=== PATIENT | male | born 1940 | race Caucasian/White ===

== ENCOUNTER → 2017-09-21 | Outpatient (CLI) | payer MEDICARE ==
[2014-11-24 16:30] VITALS: BMI 30.4
[~2017-09-21] MED LIST: ARFO15VI IH; ASPI-1471 PO; ASPI-757 PO; ASPI-816; ATOR20TA65 PO; ATR10 PO; BENA40TA51 PO; BIS10S PR; BUDE0.256 IH; CARV12.578 PO; CET10 PO; CETI-169 PO; CHOL10005 PO; CYAN100088 PO; ENO40I SQ; FLU45SYR17 IM; FLU45SYR25 IM ONLY; FLUT10SP; FLUT16SP19 NS; FLUT1DIS27 IH; GABA-547 PO; GLIM1TAB25 PO; HCTZ25 PO; LANS30CA70 PO; LEVO50TA86 PO; LISI-353 PO; LISI20TA29 PO; LOR7.5/325 PO; MELO-150 PO; METF-410 PO; METF500T4 PO; METH4TAB66 PO; MOM PO; MON10 PO; MONT10TA4 PO; NAPR220C12 PO; NOR10 PO; OLO2ODPT OD; OLO2ODPT OU; OMEP-125 PO; OXYC20TA86 PO; OXYGEN INH; PNEU0.5D3 IM; SIMV-54 PO; SULF-198 PO; TADA2.5T3 PO; TADA20TA33 PO; TAM4 PO; TAMS0.4C70 PO; TRAM-420 PO; TRI40I IART; TRI40I IM
[2017-09-21 10:25] LABS: PLATELET COUNT, AUTOMATED 141 K/uL (150-450)
--- NOTE | 2017-09-21 12:50 | RADIOLOGY IMAGING REPORT ---
FACILITY: [facility] - [place] PATIENT NAME: Flavio Cast : 1940 MR: [id number] V: [id number] EXAM DATE: ORDERING PHYSICIAN: AVE DYER TECHNOLOGIST: Location: [facility] - [place] Patient: Flavio Cast : 1940 Visit/Account:[id number] Date of Sevice: 09/21/2017 Exam type: CHEST PA AND LAT History: May 20 month, no chest pain Comparison: February 11, 2013. Findings: There is hyperinflation lung powers with flattening the hemidiaphragms. Pleural thickening is again seen along the lateral aspect of both hemithoraces similar to the prior study. Coarse linear strandi ng in the lung bases appears unchanged consistent with scarring. No acute appearing infiltrates are seen. The cardiac silhouette is borderline enlarged but unchanged. There are extensive spondylotic changes of the thoracic spine with mild compression fractures also appear similar. Incompletely imag ed is a right shoulder arthroplasty IMPRESSION: 1. Hyperinflation lung powers and chronic pleural thickening along the lateral aspect of both hemith oraces and coarse linear stranding lung bases all appear unchanged when compared to the prior study. Report Dictated By: Susanne Nguyen MD at 09/21/2017 12:44 PM Report E-Signed By: Susanne Nguyen MD at 09/21/2017 12:46 PM WSN:[email or web address]
== END ==
LOC: LAB 09:44
PROVIDERS: ATTEND Internal Medicine
DX: Z12.5 Encounter for screening for malignant neoplasm of prostate (principal); E78.00 Pure hypercholesterolemia, unspecified; I10 Essential (primary) hypertension; E03.9 Hypothyroidism, unspecified; D75.1 Secondary polycythemia; N40.0 Benign prostatic hyperplasia without lower urinary tract symptoms; J44.9 Chronic obstructive pulmonary disease, unspecified; R91.8 Other nonspecific abnormal finding of lung field
CPT/HCPCS: 71046; 82746; 83036; 84443; 85025; G0103; 82040; 82247; 82310; 82374; 82435; 82465; 82565; 82947; 83718; 84075; 84132; 84153; 84155; 84295; 84450; 84460; 84478; 84520

== ENCOUNTER 2018-02-04 15:15 | Inpatient (IN) | payer MEDICARE ==
[2014-11-24 16:30] VITALS: Ht 193 cm; Wt 108.9 kg
[~2018-02-04] VITALS: Ht 193 cm; Wt 108.9 kg
[~2018-02-04 15:15] MED LIST changes: -ASPI-816; +ASPI-870; -METF-410 PO; +METF-411 PO
--- NOTE | 2018-02-04 15:26 | ER Report ---
History and Physical Time Seen By MD: 15:21 HPI/ROS CHIEF COMPLAINT: Weakness, hypotension, right lower extremity swelling and erythema HISTORY OF PRESENT ILLNESS: Patient is a 77-year-old male here with complaints of right lower extremity redness, erythema, swelling and pain. Patient is diabetic and has a right lower extremity concerning for cellulitis versus clot. Patient reportedly fell 2 weeks ago and treated small wound in the leg just likely the entry point for bacterial infection. She also reports generalized weakness and was noted to be hypotensive with systolic in the 80s patient's family doctor today. Patient is afebrile at time of evaluation, hypotensive complaining of edema and pain of the right lower extremity. He is afebrile and denies fevers or chills at home, headache, blurred vision, chest pain, shortness breath. REVIEW OF SYSTEMS: Constitutional: No fever, no chills. Eyes: No discharge. ENT: No sore throat. Cardiovascular: No chest pain, no palpitations. Respiratory: No cough, no shortness of breath. Gastrointestinal: No abdominal pain, no vomiting. Genitourinary: No hematuria. Musculoskeletal: No back pain. Skin: + 2 + pitting edema of RLE and cellulitis Neurological: No headache. Allergies: Uncoded Allergies: HAYFEVER (Allergy, Intermediate, UNKNOWN, 01/24/12) Home Meds Active Scripts Gabapentin (GABAPENTIN) 100 Mg Capsule, 1-2 TAB PO BID Y for pain, #360 CAPSULE 3 Refills Prov:AVE DYER MD 12/10/17 Lisinopril (LISINOPRIL) 20 Mg Tablet, 1 TAB PO QDAY, #90 TAB 3 Refills Prov:AVE DYER MD 10/23/17 Omeprazole (OMEPRAZOLE) 20 Mg Capsule.dr, 1 CAP PO QDAY, #90 TAB 3 Refills TAKE ONE CAPSULE BY MOUTH ONCE A DAY Prov:AVE DYER MD 09/21/17 Atorvastatin Calcium (ATORVASTATIN CALCIUM) 20 Mg Tablet, 1 TAB PO QDAY, #90 TAB 4 Refills Prov:AVE DYER MD 03/01/17 Tamsulosin Hcl (TAMSULOSIN HCL) 0.4 Mg Cap.er.24h, 1 CAP PO QHS, #90 CAP 4 Refills Prov:AVE DYER MD 03/01/17 Montelukast Sodium (MONTELUKAST SODIUM) 10 Mg Tablet, 1 TAB PO QDAY, #90 TAB 4 Refills TAKE ONE TABLET BY MOUTH AT LEAST TWO HOURS PIOR TO EXERCISE Prov:AVE DYER MD 03/01/17 Levothyroxine Sodium (LEVOTHYROXINE SODIUM) 50 Mcg Tablet, 1 TAB PO QDAY, #90 TAB 4 Refills Prov:AVE DYER MD 03/01/17 Glimepiride (GLIMEPIRIDE) 1 Mg Tablet, 1 TAB PO QDAY, #90 TAB 4 Refills Prov:AVE DYER MD 03/01/17 Carvedilol (CARVEDILOL) 12.5 Mg Tablet, 1 TAB PO BID, #180 TAB 4 Refills TAKE ONE TABLET BY MOUTH TWICE A DAY Prov:AVE DYER MD 03/01/17 Metformin Hcl (METFORMIN HCL) 500 Mg Tablet, 2 TAB PO BID, #360 TAB 4 Refills TAKE TWO TABLETS BY MOUTH TWO TIMES A DAY WITH FOOD Prov:AVE DYER MD 03/01/17 Fluticasone Prop 50 Mcg Ns (FLONASE 50 MCG NS) 16 Gm [place].susp, 2 SPRAYS NS QDAY, #3 CON 4 Refills Prov:AVE DYER MD 03/01/17 Cyanocobalamin (Vitamin B-12) (B-12) 1,000 Mcg Tablet.er, 1000 MCG PO QDAY, #30 TAB 5 Refills Prov:AVE DYER MD 06/20/16 Reported Medications Aspirin (Children's Aspirin) 81 Mg Tab.chew, 1 TAB 3XW, #100 TAB 4 Refills 11/19/14 Discontinued Reported Medications Tamsulosin Hcl (FLOMAX) 0.4 Mg Cap.er.24h, MG PO, CAP 02/04/18 Cholecalciferol (Vitamin D3) (VITAMIN D3) 1,000 Unit Tablet, 1000 TAB PO DAILY, #100 TAB 4 Refills 11/19/14 Discontinued Scripts Cetirizine Hcl (CETIRIZINE HCL) 10 Mg Tablet, 1 TAB PO QDAY, #90 TAB 3 Refills TAKE 1 TABLET DAILY. Prov:AVE DYER MD 05/10/16 Budesonide (BUDESONIDE) 0.25 Mg/2 Ml Ampul.neb, 0.25 MG IH BID, #60 ML 6 Refills Prov:AVE DYER MD 09/21/17 Arformoterol Tartrate (BROVANA) 15 Mcg/2 Ml Vial.neb, 15 MCG IH BID, #60 VIAL 6 Refills Prov:AVE DYER MD 09/21/17 Past Medical/Surgical History Head trauma, hypertension, COPD, oxygen dependent, gastric reflux, hiatal hernia , arthritis, diabetes Hx Smoking: No Smoking Status: Former Smoker Constitutional Vital Sign - Last 24 Hours 02/04/18 02/04/18 02/04/18 02/04/18 15:15 15:22 15:23 15:23 Temp 98.5 Pulse ??? 71 Resp 18 B/P (MAP) 99/53 (68) 99/53 Pulse Ox 94 O2 Delivery Room Air O2 Flow Rate 2.0 02/04/18 02/04/18 02/04/18 02/04/18 15:30 15:45 16:15 16:45 Pulse 75 77 Resp 13 13 21 B/P (MAP) 84/55 (65) 81/56 (64) Pulse Ox 93 94 92 02/04/18 02/04/18 02/04/18 16:54 17:00 17:05 Pulse 72 Resp 17 B/P (MAP) 91/50 (64) 91/56 (68) Pulse Ox 92 Physical Exam General Appearance: The patient is alert, has no immediate need for airway protection and no signs of toxicity. No acute distress Eyes: Pupils equal and round no pallor or injection. ENT, Mouth: Mucous membranes are moist. Respiratory: There are no retractions, lungs are clear to auscultation. Cardiovascular: Regular rate and rhythm. Gastrointestinal: Abdomen is soft and non tender, no masses, bowel sounds normal. Neurological: No focal neurological deficit Skin: + Right lower extremity erythema and edema Musculoskeletal: Neck is supple non tender. Right lower extremity is tender and erythematous DIFFERENTIAL DIAGNOSIS: After history and physical exam differential diagnosis was considered for cellulitis in the setting of diabetes, DVT, heart failure, dehydration, hypovolemia, sepsis. Medical Decision Making Data Points Result Diagram: 02/05/18 0525 02/05/18 0525 Laboratory Hematology Test 02/04/18 15:25 Prothrombin Time 14.1 seconds (12.0-14.4) Prothromb Time International Ratio 1.09 Activated Partial Thromboplast Time 31 seconds (23-35) Chemistry Test 02/04/18 15:25 Prothrombin Time 14.1 seconds (12.0-14.4) Prothromb Time International Ratio 1.09 Activated Partial Thromboplast Time 31 seconds (23-35) Coagulation Test 02/04/18 15:25 Prothrombin Time 14.1 seconds Prothromb Time International Ratio 1.09 Activated Partial Thromboplast Time 31 seconds Microbiology Microbiology Date/Time Source Procedure Growth Status 02/04/18 16:13 Blood Blood Culture - Preliminary NO GROWTH AFTER 1 DAY, REINCUBATED Resulted 02/04/18 16:08 Blood Blood Culture - Preliminary NO GROWTH AFTER 1 DAY, REINCUBATED Resulted ED Course/Re-evaluation ED Course Patient is a 77-year-old male here with complaints of right lower extremity swelling and surrounding erythema concerning for cellulitis in the setting of diabetes. Patient reports striking the leg approximately 2 weeks ago creating a small wound which may be the nidus for infection. Patient is afebrile at time of evaluation however it is noted to have a lactate 2.5, white blood cell count was 12. Blood Cultures are collected. Patient received fluids and cefepime for antimicrobial coverage as well as Solu-Cortef. X-ray of the chest, ultrasound Doppler of the right lower extremity as well as x-ray of the tib-fib of the right lower extremity were completed. I discussed the patient with Dr. Porter who accepted the patient to the hospitalist service. Patient remained stable throughout course and treatment. Decision to Disposition Date: Feb 04, 2018 Decision to Disposition Time: 17:52 Depart Departure Latest Vital Signs Vital Signs Date Time Temp Pulse Resp B/P (MAP) Pulse Ox O2 Delivery O2 Flow Rate FiO2 02/04/18 17:05 72 17 92 02/04/18 17:00 91/56 (68) 02/04/18 15:23 2.0 02/04/18 15:23 98.5 Room Air Impression: Primary Impression: Cellulitis Additional Impressions: Diabetes Peripheral edema Condition: Improved Disposition: Admitted from ER Referrals: AVE DYER MD (PCP) Problem Qualifiers ISRAEL PITTS DO Feb 04, 2018 15:26
[2018-02-04] MEDS ORDERED: CEFEPIME HCL 1 GM VIAL IVP ONE (15:40)
[2018-02-04] MEDS ORDERED: NS 0.9% IV ONE (15:40)
[2018-02-04] MEDS ORDERED: TAMS0.4C25 PO (15:46)
[2018-02-04 15:52] LABS: PLATELET COUNT, AUTOMATED 141 K/uL (150-450)
[2018-02-04 16:01] LABS: INR 1.09
[2018-02-04] MEDS ORDERED: HYDROCORTISONE 100 MG/2 ML IVP ONE (16:50)
--- NOTE | 2018-02-04 17:07 | RADIOLOGY IMAGING REPORT ---
FACILITY: [facility] PATIENT NAME: Flavio Cast : 1940 MR: [id number] V: [id number] EXAM DATE: ORDERING PHYSICIAN: ISRAEL PITTS TECHNOLOGIST: Location: [facility] - [place] Patient: Flavio Cast : 1940 Visit/Account:[id number] Date of Sevice: 02/04/2018 CHEST PA AND LAT Indication: Comparison: Chest x-ray 09/21/2017 Findings: Lungs: Linear scarring left lung base is unchanged. The lungs are otherwise clear. There is hyperinfl ation and flattening the diaphragms. Mediastinum/pulmonary vasculature: Cardiomegaly is unchanged. The pulmonary vasculature is distinct. Bones/soft tissues: There are postoperative changes from a right shoulder arthroplasty. Multilevel th oracic spondylosis is seen. IMPRESSION: 1. No evidence of acute airspace opacity or pneumonia. 2. Chronic linear scarring left lung base. 3. COPD, stable. 4. Cardiomegaly without evidence of CHF. Report Dictated By: Andrew Rubalcava at 02/04/2018 5:00 PM Report E-Signed By: Andrew Rubalcava at 02/04/2018 5:01 PM [email or web address]
--- NOTE | 2018-02-04 17:14 | RADIOLOGY IMAGING REPORT ---
FACILITY: [facility] - [place] PATIENT NAME: Flavio Cast : 1940 MR: [id number] V: [id number] EXAM DATE: ORDERING PHYSICIAN: ISRAEL PITTS TECHNOLOGIST: Location: [facility] Patient: Flavio Cast : 1940 Visit/Account:[id number] Date of Sevice: 02/04/2018 TIBIA FIBULA RIGHT Indication: infection Comparison: None. Findings: There are postoperative changes from a right total knee arthroplasty. There are also postop erative changes with fusion hardware in the distal tibia, as well as resection of the distal fibula. There is no evidence of acute fracture. There is fusion hardware of the mortise. Atherosclerotic patel ges are seen in the calf. IMPRESSION: 1. Hardware with fusion of the mortise, and resection of the distal fibula. No evidence of acute frac ture. 2. Postoperative changes from a right total knee arthroplasty. Report Dictated By: Andrew Rubalcava at 02/04/2018 5:01 PM Report E-Signed By: Andrew Rubalcava at 02/04/2018 5:10 PM WSN:[id number]
--- NOTE | 2018-02-04 18:04 | RADIOLOGY IMAGING REPORT ---
FACILITY: [facility] - [place] PATIENT NAME: Flavio Cast : 1940 MR: [id number] V: [id number] EXAM DATE: ORDERING PHYSICIAN: ISRAEL PITTS TECHNOLOGIST: Location: [facility] Patient: Flavio Cast : 1940 Visit/Account:[id number] Date of Sevice: 02/04/2018 Right lower extremity venous Doppler duplex ultrasound scan. HISTORY: Edema, pain, injury. COMPARISON: 02/09/2014. A color flow Doppler duplex ultrasound examination with spectral analysis was performed on the lower extremity. The common femoral vein, superficial femoral vein, and popliteal vein are normal. These ve ssels compress and augment normally. The upper portions of the trifurcation veins are unremarkable. P ortions of the deep veins of the calf are obscured. No intraluminal filling defects are identified to suggest acute thrombus in the deep venous system. Note that Doppler ultrasound is somewhat insensiti ve below the knee. A venous reflux study was not performed at this time. A 12 x 4 x 1 cm fluid colle ction is present in the soft tissues of the right calf. A 3 cm oval-shaped fat containing lymph node is present in the right groin. IMPRESSION: Negative for acute deep vein thrombosis. Calf soft tissue fluid collection. Possible etiologies include hematoma, infected fluid, or less like ly Andres's cyst. Mild right groin adenopathy, probably reactive. Report Dictated By: Hermann Abebe MD at 02/04/2018 5:55 PM Report E-Signed By: Hermann Abebe MD at 02/04/2018 6:00 PM [id number]:[id number]
[2018-02-04 18:29] VITALS: BP 117/73
[2018-02-04] MEDS ORDERED: NS(*) 0.9% 1000 ML BAG 1,000 ML IV PRN (19:27)
[2018-02-04] MEDS ORDERED: ACETAMINOPHEN 325 MG TAB PO PRN (19:30)
[2018-02-04] MEDS ORDERED: GABAPENTIN 100 MG CAP PO PRN (19:30)
[2018-02-04] MEDS ORDERED: ACETAMINOPHEN 500 MG TAB PO PRN (20:00)
--- NOTE | 2018-02-04 20:09 | History & Physical ---
History of Present Illness History of Present Illness 77yo male with T2DM who was sent to the ER for concern of a cellulitis of the right leg. 3 days ago, he fell and scraped his right knee. For the last 2 days , he has noticed erythema and pain in the RLE. He went to his PCP and they sent him to the ER because of the extent of the erythema and he a lowish BP. The patient denies f/c/sob/cp. He doesn't report any weakness. In the ER, he was bolused with IVF per the sepsis protocol, given hydrocortisone and a dose of Cefepime. The BP responded to the fluid bolus. History Problems: (1) BPH (benign prostatic hyperplasia) Status: Chronic (2) Hypertension, benign Status: Chronic (3) Type II diabetes mellitus Status: Chronic (4) Hypothyroidism Status: Chronic (5) Hypercholesterolemia Status: Chronic (6) COPD (chronic obstructive pulmonary disease) Status: Chronic (7) Sleep apnea Status: Chronic (8) Status post knee replacement Home Meds Active Scripts Gabapentin (GABAPENTIN) 100 Mg Capsule, 1-2 TAB PO BID Y for pain, #360 CAPSULE 3 Refills Prov:AVE DYER MD 12/10/17 Lisinopril (LISINOPRIL) 20 Mg Tablet, 1 TAB PO QDAY, #90 TAB 3 Refills Prov:AVE DYER MD 10/23/17 Omeprazole (OMEPRAZOLE) 20 Mg Capsule.dr, 1 CAP PO QDAY, #90 TAB 3 Refills TAKE ONE CAPSULE BY MOUTH ONCE A DAY Prov:AVE DYER MD 09/21/17 Atorvastatin Calcium (ATORVASTATIN CALCIUM) 20 Mg Tablet, 1 TAB PO QDAY, #90 TAB 4 Refills Prov:AVE DYER MD 03/01/17 Tamsulosin Hcl (TAMSULOSIN HCL) 0.4 Mg Cap.er.24h, 1 CAP PO QHS, #90 CAP 4 Refills Prov:AVE DYER MD 03/01/17 Montelukast Sodium (MONTELUKAST SODIUM) 10 Mg Tablet, 1 TAB PO QDAY, #90 TAB 4 Refills TAKE ONE TABLET BY MOUTH AT LEAST TWO HOURS PIOR TO EXERCISE Prov:AVE DYER MD 03/01/17 Levothyroxine Sodium (LEVOTHYROXINE SODIUM) 50 Mcg Tablet, 1 TAB PO QDAY, #90 TAB 4 Refills Prov:AVE DYER MD 03/01/17 Glimepiride (GLIMEPIRIDE) 1 Mg Tablet, 1 TAB PO QDAY, #90 TAB 4 Refills Prov:AVE DYER MD 03/01/17 Carvedilol (CARVEDILOL) 12.5 Mg Tablet, 1 TAB PO BID, #180 TAB 4 Refills TAKE ONE TABLET BY MOUTH TWICE A DAY Prov:AVE DYER MD 03/01/17 Metformin Hcl (METFORMIN HCL) 500 Mg Tablet, 2 TAB PO BID, #360 TAB 4 Refills TAKE TWO TABLETS BY MOUTH TWO TIMES A DAY WITH FOOD Prov:AVE DYER MD 03/01/17 Fluticasone Prop 50 Mcg Ns (FLONASE 50 MCG NS) 16 Gm [place].susp, 2 SPRAYS NS QDAY, #3 CON 4 Refills Prov:AVE DYER MD 03/01/17 Cyanocobalamin (Vitamin B-12) (B-12) 1,000 Mcg Tablet.er, 1000 MCG PO QDAY, #30 TAB 5 Refills Prov:AVE DYER MD 06/20/16 Cetirizine Hcl (CETIRIZINE HCL) 10 Mg Tablet, 1 TAB PO QDAY, #90 TAB 3 Refills TAKE 1 TABLET DAILY. Prov:AVE DYER MD 05/10/16 Reported Medications Tamsulosin Hcl (FLOMAX) 0.4 Mg Cap.er.24h, MG PO, CAP 02/04/18 Aspirin (Children's Aspirin) 81 Mg Tab.chew, 1 TAB 3XW, #100 TAB 4 Refills 11/19/14 Discontinued Reported Medications Cholecalciferol (Vitamin D3) (VITAMIN D3) 1,000 Unit Tablet, 1000 TAB PO DAILY, #100 TAB 4 Refills 11/19/14 Discontinued Scripts Budesonide (BUDESONIDE) 0.25 Mg/2 Ml Ampul.neb, 0.25 MG IH BID, #60 ML 6 Refills Prov:AVE DYER MD 09/21/17 Arformoterol Tartrate (BROVANA) 15 Mcg/2 Ml Vial.neb, 15 MCG IH BID, #60 VIAL 6 Refills Prov:AVE DYER MD 09/21/17 Allergies: Uncoded Allergies: HAYFEVER (Allergy, Intermediate, UNKNOWN, 01/24/12) Patient History: FH: PA (myocardial infarction) MOTHER, , Age:77 Other Social/Family Hx Quit drinking alcohol 3 weeks ago. No tobacco use. Hx Smoking: No Smoking Status: Former Smoker Review of Systems All Systems Reviewed/Normal: Yes, Except as Noted Exam Vital Signs Vital Signs Date Time Temp Pulse Resp B/P (MAP) Pulse Ox O2 Delivery O2 Flow Rate FiO2 02/04/18 18:29 99.1 79 20 117/73 (88) 94 Nasal Cannula 2.0 General Appearance: Alert, Awake, No Acute Distress ENT: Moist Mucous Membranes Cardiovascular: Regular Rate and Rhythm Respiratory: Clear to Auscultation GI: Abd Soft and Non-Tender (ventral hernia that is reducible.) Extremities: Other (RLE is swollen from the knee down and worse in the foot. Erythema and warmth from the knee down to the foot. He reports mild tenderness with pressure to the leg. Borders marked. Scab on knee. No other obvious skin breakdown) Medical Decision Making Data Points Result Diagram: 02/04/18 1525 02/04/18 1525 Item Value Date Time Neutrophils (%) (Auto) 81.5 % H 02/04/18 1525 Lymphocytes (%) (Auto) 6.4 % L 02/04/18 1525 Monocytes (%) (Auto) 8.8 % 02/04/18 1525 Eosinophils (%) (Auto) 3.0 % 02/04/18 1525 Prothromb Time International Ratio 1.09 02/04/18 1525 Creatinine 1.30 mg/dl H 09/21/17 1002 Creatinine 2.50 mg/dl H 02/04/18 1525 Lactate 2.5 mmol/L H 02/04/18 1525 Lactate 1.3 mmol/L 02/04/18 1904 Calcium Level 8.5 mg/dl 02/04/18 1525 Total Bilirubin 1.5 mg/dl H 02/04/18 1525 Aspartate Amino Transf (AST/SGOT) 44 U/L H 02/04/18 1525 Alanine Aminotransferase (ALT/SGPT) 19 U/L 02/04/18 1525 EKG / Imaging Imaging CXR - 1. No evidence of acute airspace opacity or pneumonia. 2. Chronic linear scarring left lung base. 3. COPD, stable. 4. Cardiomegaly without evidence of CHF. Tib/Fib Xray - 1. Hardware with fusion of the mortise, and resection of the distal fibula. No evidence of acute fracture. 2. Postoperative changes from a right total knee arthroplasty. RLE venogram - Negative for acute deep vein thrombosis. Calf soft tissue fluid collection. Possible etiologies include hematoma, infected fluid, or less likely Andres's cyst. Mild right groin adenopathy, probably reactive. Assessment and Plan Problems: (1) Sepsis Status: Acute Assessment & Plan: He presented with low normal BP, ARF and elevated lactate secondary to RLE cellulitis. He was bolused with IVF per the sepsis protocol and given a dose of hydrocortisone. His lactate has normalized and his BP is stable. (2) Cellulitis Status: Acute Assessment & Plan: He presented with 2 days of RLE erythema and fall causing a knee abrasion 3 days ago. It is complicated by diabetes. He has an elevated wbc and his there is a reported fluid collection in the soft tissue of the calf that measures 12x4x1 cm. Will discuss with surgery about possible drainage. He was given a dose of cefepime in the ER. Will switch to Primaxin and consider adding vancomycin if not improving quickly. (3) ARF (acute renal failure) Status: Acute Assessment & Plan: Secondary to above. He has received IVF. Will follow. Renally adjust medications. Will hold lisinopril, ASA. (4) Type II diabetes mellitus Status: Chronic Assessment & Plan: Hold metformin. AC and HS glucose. SSI level 2 to cover. (5) CKD (chronic kidney disease) stage 3, GFR 30-59 ml/min Status: Chronic Assessment & Plan: Baseline creatinine is about 1.3. (6) Hypertension, benign Status: Chronic Assessment & Plan: Holding lisinopril, carvedilol. (7) Hypothyroidism Status: Chronic Assessment & Plan: Continue chronic levothyroxine. (8) BPH (benign prostatic hyperplasia) Status: Chronic Assessment & Plan: Continue chronic Flomax. (9) COPD (chronic obstructive pulmonary disease) Status: Chronic Assessment & Plan: Continue chronic Singulair. Copies to: AVE DYER MD Venous Thromboembolism Antithrombotics Is Pt On Any Antithrombotics?: No Exam Sepsis Risk: No Definite Risk MEGAN POOLE MD Feb 04, 2018 20:09
[2018-02-04] MEDS: IMIPENEM/CILASTA(*) 500MG VIAL 300 MG in NS(*) 0.9% 100 ML BAG 100 ML IVPB SCH (20:47)
[2018-02-04] MEDS: INSULIN HUM LISPRO 100 UN/ML 3 ML VIAL SUBQ PRN (22:44)
[2018-02-04 23:13] VITALS: BP 118/61
[2018-02-05] MEDS: IMIPENEM/CILASTA(*) 500MG VIAL 300 MG in NS(*) 0.9% 100 ML BAG 100 ML IVPB SCH ×4 (01:39→19:49)
[2018-02-05 02:58] VITALS: BP 126/69
[2018-02-05] MEDS ORDERED: NS(*) 0.9% 1000 ML BAG 1,000 ML IV PRN (03:03)
[2018-02-05] MEDS: LEVOTHYROXINE SOD 0.05 MG TAB PO SCH (05:34)
[2018-02-05 06:07] LABS: PLATELET COUNT, AUTOMATED 139 K/uL (150-450)
[2018-02-05 06:52] VITALS: BP 128/75
[2018-02-05] MEDS: INSULIN HUM LISPRO 100 UN/ML 3 ML VIAL SUBQ PRN ×3 (08:13→20:43)
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
[2018-02-05] MEDS ORDERED: ENOXAPARIN 30 MG/0.3 ML SYR SC SCH (09:00)
[2018-02-05] MEDS: TAMSULOSIN HCL 0.4 MG CAP PO SCH (09:21)
[2018-02-05] MEDS: PANTOPRAZOLE SOD 40 MG TABEC PO SCH (09:21)
[2018-02-05] MEDS: MONTELUKAST SODIUM 10 MG TAB PO SCH (09:21)
--- NOTE | 2018-02-05 09:46 | RADIOLOGY IMAGING REPORT ---
FACILITY: [facility] - [place] PATIENT NAME: Flavio Cast : 1940 MR: [id number] V: [id number] EXAM DATE: ORDERING PHYSICIAN: CAROLYN NGUYEN TECHNOLOGIST: Location: [facility] - [place] Patient: Flavio Cast : 1940 Visit/Account:[id number] Date of Sevice: 02/05/2018 Exam type: SOFT TISSUE NON-SPECIFIC History: Rt calf fluid collection, iris skin over the collection Comparison: None. Findings: Limited sonographic exam performed for marking of fluid collection along the anterolateral right calf . Iris was placed over the collection for subsequent drainage. IMPRESSION: Limited sonogram for marking of right calf fluid collection. Report Dictated By: Steven Swanson MD at 02/05/2018 9:41 AM Report E-Signed By: Steven Swanson MD at 02/05/2018 9:42 AM [id number]
--- NOTE | 2018-02-05 10:50 | Antimicrobial Stewardship Note ---
Antimicrobial Stewardship Note Note Clinical Pharmacist Note AA is a 77 yo M who presented to the ED with weakness, hypotension, and RLE swelling, pain and redness. He states he fell two weeks ago and has a wound under his R knee. Pt has a history of DM2, Hx of R ankle fusion, and R TKA. 02/04/18: Lactate 2.5, hypotension, WBC 12.5, Scr 2.5, afebrile 02/05/18: Repeat Lactate 1.3, Scr 1.7, WBC 10.9, CRP 20.2, afebrile Blood Cx x 2- NGTD, preliminary result Wound Cx to be done by Dr. Thibodeaux once abscess is drained 1. Cellulitis- US of RLE shows fluid collection to be drained by Dr. Thibodeaux, to be sent for cultures. CrCl ~46ml/min, on Primaxin 300mg IV q6h. Pt with response to Primaxin, redness is not extending past margins drawn yesterday. Pt reports feeling better as well. Primaxin dose appropriate for renal function , will continue to monitor and adjust based on cx and sensitivities. Hardware in R ankle appears normal on xray. Charlotte Torres, PharmD, [facility] [place] TORRES Feb 05, 2018 10:50
[2018-02-05 11:00] VITALS: BP 130/71
--- NOTE | 2018-02-05 13:00 | Hospitalist Progress Note ---
Subjective Progress Notes Subjective He reports feeling much improved as compared to yesterday. Physical Exam Vital Signs Date Time Temp Pulse Resp B/P (MAP) Pulse Ox O2 Delivery O2 Flow Rate FiO2 02/05/18 11:00 98.7 77 20 130/71 (90) 91 Nasal Cannula 02/05/18 07:15 2.0 Intake and Output 02/06/18 06:59 Intake Total 240 ml Balance 240 ml Intake Oral 240 ml # Voids 1 # Bowel Movements 1 General Appearance: Alert, Awake Extremities: Other (RLE with large area of erythema/edema - it has not extended beyond marked borders/large flucuent area over lateral portion of fibular area/right knee has normal ROM and no obvious effusion) Integumentary: Generalized Fragile Skin, Other (abrasion/open area over patellar tendon area) Psych: Alert & Oriented X3 Result Diagram: 02/05/1852402/05/18524 Assessment and Plan Problems: (1) Sepsis Status: Acute Assessment & Plan: He presented with low normal BP, ARF and elevated lactate secondary to RLE cellulitis. He was given IVF per the sepsis protocol and given a dose of hydrocortisone. His lactate has normalized and his BP is stable. (2) Cellulitis Status: Acute Assessment & Plan: He presented with 2 days of RLE erythema and fall causing a knee abrasion 3 days ago. It is complicated by diabetes. He had an elevated WBC and his there is a fluid collection in the soft tissue of the calf that measures 12x4x1 cm. [address] Thibodeaux has seen about possible drainage. He is now on IV Primaxin and appears to be improving. (3) ARF (acute renal failure) Status: Acute Assessment & Plan: Secondary to above. He has improved with IVF. Renally adjusted medications. Will hold lisinopril, ASA. Watch labs. (4) Type II diabetes mellitus Status: Chronic Assessment & Plan: Holding metformin. AC and HS glucose monitoring. Will use SSI level 2 to cover. (5) CKD (chronic kidney disease) stage 3, GFR 30-59 ml/min Status: Chronic Assessment & Plan: Baseline creatinine is about 1.3. (6) Hypertension, benign Status: Chronic Assessment & Plan: Holding lisinopril, carvedilol. (7) Hypothyroidism Status: Chronic Assessment & Plan: Continue chronic levothyroxine. (8) BPH (benign prostatic hyperplasia) Status: Chronic Assessment & Plan: Continue chronic Flomax. (9) COPD (chronic obstructive pulmonary disease) Status: Chronic Assessment & Plan: Continue chronic Singulair. Exam Sepsis Risk: No Definite Risk RAMIN SPANGLER MD Feb 05, 2018 12:59
[2018-02-05 14:15] VITALS: BP 137/75
[2018-02-05 15:13] VITALS: BP 124/68
[2018-02-05] MEDS ORDERED: LIDOCAINE 1% MDV 200 MG/20 ML INJ ONE (15:25)
--- NOTE | 2018-02-05 16:23 | Medical Nutrition Therapy ---
Nutrition Anthropometrics Height (Inches): 76.00 Height (Calculated Centimeters: 193.838971 Weight (Pounds): 240 Weight (Calculated Kilograms): 108.862 Omari Nutrition Score: Adequate Omari Nutrition Risk Score: 19 Dietary Referral Nutrition Risk Factors: Nutrition Risk Comment: Physical Findings Physical Appearance: Overweight BMI 25-29 Skin Appearance Skin Appearance: Edema Edema Location Modifier: Right Edema Location: Foot Type of Edema: Degree of Edema: 2+ Gastrointestinal Symptoms GI Symtoms: Bloating Tube Present: Bowel Sounds: Recent Bowel Pattern: Stool Characteristics: Nutritional Diagnosis Nutritional Risk Acuity 2: Chronic Renal Failure, Abcess/Non-Healing Wound, Sepsis Nutritional Risk Acuity 3: COPD Unstable Past Medical History: Hypoxia, T2DM, CKD stage 3, obesity, BPH, HTN, hyperthyroid, ARF, COPD, Nutritional Acuity: 2-Moderate Nutrition Diagnosis: Increased Nutrient Needs Nutrition Etiology: Physiological Causes Nutrition Problem/Etiology/Sym: Increase nutrient needs related physiological causes as evidence by sepsis in RLE. Energy Requirement: 2309 (L[employer] Adj BMI >27.5 X1.3 AF) Protein Requirement: 86 (.8kg/kg ) Fluid Requirement: 2309 (1ml/kcal) Diet Type: Diabetic Nutrition Intervention: Cont diet as ordered, Encourage intake Nutrition Monitoring & Eval Nutrition Goals: Eat 75-100% Meal RD Patient Assessment Time: [address] Assessment Type: RD Assessment Follow Up Date: Feb 08, 2018 Nutritional Comment: 02/05 Pt admitted for cellulitis in RLE. Pt has had 2 days of RLE erythema and fall causing a knee abrasion 3 days ago. It is complicated by diabetes. RLE has been drained. Pt is on ADA diet with 100% oral intake. Pt has elevated c- reactive protein (20.1), creatinine (1.20), BUN 937) and low alb (2.5). Moderate protein to help wound heal. Will continue to monitor pt progress, labs, etc. and encourage intake. -CHELSEY CARCAMO Feb 05, 2018 15:47
--- NOTE | 2018-02-05 18:44 | Procedure Note ---
Additional Procedures Comment Preprocedural diagnosis: Right lower leg cellulitis with abscess Postprocedural diagnosis: Same as above Procedure: Incision and drainage of right lower leg abscess Surgeon: Carlos Eduardo Anesthesia: 4 mL of 1% lidocaine without epinephrine Complications: None Condition: Stable Specimen: Fluid from the abscess was sent for aerobic and anaerobic cultures Indications: This is a 77-year-old diabetic who fell and scraped his right knee 4 days ago and 2 days ago began experiencing increasing swelling and redness in his right lower leg. He presented to the emergency room yesterday and was admitted and started on IV antibiotics. An ultrasound of his right lower leg revealed a fluid collection in the subcutaneous space. I have been consulted and the patient has agreed to incision and drainage. Procedure: This was done in the patient's hospital bed. His right lower leg was prepped and draped in a sterile fashion. I anesthetized the skin over the fluid collection and made a cruciate incision over the fluid collection and drained a copious amount of purulent appearing fluid. I cleaned out the cavity with dry gauze and then packed the cavity with a dry 4 x 4 gauze. I then covered this area with a stack of 4 x 4 gauze and then wrapped his lower leg in Kerlix and an Isidro wrap. He tolerated the procedure without any apparent problems. CAROLYN NGUYEN MD Feb 05, 2018 18:43
[2018-02-05 18:53] VITALS: BP 135/77
[2018-02-06] VITALS (7 sets, daily range): BP systolic 112–153; BP diastolic 60–93
[2018-02-06] MEDS: IMIPENEM/CILASTA(*) 500MG VIAL 300 MG in NS(*) 0.9% 100 ML BAG 100 ML IVPB SCH ×4 (01:44→20:24)
[2018-02-06] MEDS: LEVOTHYROXINE SOD 0.05 MG TAB PO SCH (06:17)
[2018-02-06 06:20] LABS: PLATELET COUNT, AUTOMATED 180 K/uL (150-450)
--- NOTE | 2018-02-06 06:59 | General Surgery Progress Note ---
Subjective Progress Notes Subjective No complaints. Physical Exam Vital Signs Date Time Temp Pulse Resp B/P (MAP) Pulse Ox O2 Delivery O2 Flow Rate FiO2 02/06/18 03:22 98.4 69 16 123/81 (95) 97 CPAP 02/05/18 20:05 3.0 General Appearance: Alert, Awake, No Acute Distress, Afebrile Extremities: Other (Right lower leg with improving erythema and edema. Wound is clean with serous drainage.) Result Diagram: 02/06/18 0539 02/06/18 0539 Assessment and Plan Problems: (1) Cellulitis and abscess of right lower extremity Status: Acute Assessment & Plan: 02/05/18: Cellulitis seems to be fairly acute, starting about 2 days ago. The fluid collection is less clear. The patient seems to think that, if the fluid collection is on the lateral calf, that this occurred a month ago. I cannot tell from the ultrasound dictation where the fluid collection they see ultrasonographically is located and they did not iris the skin overlying the fluid collection. We will repeat the ultrasound this morning and will have the marked the skin and once I can confirm where the fluid collection is then I could potentially incise and drain this area. I have explained this plan to the patient and he seems to be agreeable with it. 02/06/18: I I/Ded the fluid collection on right lower leg last evening and sent fluids for cx. Pt doing well. Will continue wound care. Condition Stable. Time Spent: < 30 min Exam Sepsis Risk: No Definite Risk CAROLYN NGUYEN MD Feb 06, 2018 06:59
[2018-02-06] MEDS: MONTELUKAST SODIUM 10 MG TAB PO SCH (08:36)
[2018-02-06] MEDS: PANTOPRAZOLE SOD 40 MG TABEC PO SCH (08:36)
[2018-02-06] MEDS: TAMSULOSIN HCL 0.4 MG CAP PO SCH (08:36)
--- NOTE | 2018-02-06 11:24 | Hospitalist Progress Note ---
Subjective Progress Notes Subjective He denies SOB. He is wanting to go home. Leg is not bothering him. Physical Exam Vital Signs Date Time Temp Pulse Resp B/P (MAP) Pulse Ox O2 Delivery O2 Flow Rate FiO2 02/06/18 11:10 98.9 68 16 139/80 (99) 95 Nasal Cannula 02/06/18 09:21 3.0 Intake and Output 02/07/18 06:59 Intake Total 357 ml Balance 357 ml Intake Oral 240 ml IV Total 117 ml General Appearance: Alert, Awake, No Acute Distress Respiratory: Clear to Auscultation (But appears like he is mildly dyspneic) Integumentary: Other (erythema is a bit regressed above the knee, but otherwise unchanged) Result Diagram: 02/06/18 0539 02/06/18 0539 Assessment and Plan Problems: (1) Cellulitis Status: Acute Assessment & Plan: He presented with 2 days of RLE erythema and fall causing a knee abrasion 3 days ago. It is complicated by diabetes. He had an elevated WBC and his there is a fluid collection in the soft tissue of the calf that measures 12x4x1 cm. Dr[address] Thibodeaux drained it on 02/05. He is now on IV Primaxin. The erythema is slightly improving. (2) Sepsis Status: Resolved Assessment & Plan: He presented with low normal BP, ARF and elevated lactate secondary to RLE cellulitis. He was given IVF per the sepsis protocol and given a dose of hydrocortisone. His lactate has normalized and his BP is stable. (3) ARF (acute renal failure) Status: Acute Assessment & Plan: Secondary to above. He has improved with IVF. Renally adjusted medications. Will hold lisinopril, ASA. Watch labs. (4) Type II diabetes mellitus Status: Chronic Assessment & Plan: Holding metformin. AC and HS glucose monitoring. Will use SSI level 2 to cover. (5) CKD (chronic kidney disease) stage 3, GFR 30-59 ml/min Status: Chronic Assessment & Plan: Baseline creatinine is about 1.3. (6) Hypertension, benign Status: Chronic Assessment & Plan: Holding lisinopril, carvedilol. (7) Hypothyroidism Status: Chronic Assessment & Plan: Continue chronic levothyroxine. (8) BPH (benign prostatic hyperplasia) Status: Chronic Assessment & Plan: Continue chronic Flomax. (9) COPD (chronic obstructive pulmonary disease) Status: Chronic Assessment & Plan: Lungs are clear. He reports that he is at his baseline, but appears mildly dyspneic. Continue chronic Singulair. Exam Sepsis Risk: No Definite Risk MEGAN POOLE MD Feb 06, 2018 11:23
[2018-02-06] MEDS: INSULIN HUM LISPRO 100 UN/ML 3 ML VIAL SUBQ PRN ×3 (11:50→20:25)
--- NOTE | 2018-02-06 15:39 | Medical Nutrition Therapy ---
Nutrition Anthropometrics Height (Inches): 76.00 Height (Calculated Centimeters: 193.819941 Weight (Pounds): 240 Weight (Calculated Kilograms): 108.862 Omari Nutrition Score: Adequate Omari Nutrition Risk Score: 20 Dietary Referral Nutrition Risk Factors: Nutrition Risk Comment: Physical Findings Physical Appearance: Overweight BMI 25-29 Skin Appearance Skin Appearance: Edema Edema Location Modifier: Left Edema Location: Leg Type of Edema: Degree of Edema: 2+ Gastrointestinal Symptoms GI Symtoms: Bloating Tube Present: Bowel Sounds: Recent Bowel Pattern: Stool Characteristics: Nutritional Diagnosis Nutritional Risk Acuity 2: Chronic Renal Failure, Abcess/Non-Healing Wound, Sepsis Nutritional Risk Acuity 3: COPD Unstable Past Medical History: Hypoxia, T2DM, CKD stage 3, obesity, BPH, HTN, hyperthyroid, ARF, COPD, Nutritional Acuity: 2-Moderate Nutrition Diagnosis: Increased Nutrient Needs Nutrition Etiology: Physiological Causes Nutrition Problem/Etiology/Sym: Increase nutrient needs related physiological causes as evidence by sepsis in RLE. Energy Requirement: 2309 (L[employer]better [place] Adj BMI >27.5 X1.3 AF) Protein Requirement: 86 (.8kg/kg ) Fluid Requirement: 2309 (1ml/kcal) Diet Type: Diabetic Nutrition Intervention: Cont diet as ordered, Encourage intake Diet Comment To RSA: 75g of carbs and unlimited protein and fat. Nutrition Monitoring & Eval RD Patient Assessment Time: [address] Assessment Type: RD Assessment Follow Up Date: Feb 08, 2018 Nutritional Comment: 02/05 Pt admitted for cellulitis in RLE. Pt has had 2 days of RLE erythema and fall causing a knee abrasion 3 days ago. It is complicated by diabetes. RLE has been drained. Pt is on ADA diet with 100% oral intake. Pt has elevated c- reactive protein (20.1), creatinine (1.20), BUN (37) and low alb (2.5). Moderate protein to help wound heal. Will continue to monitor pt progress, labs, etc. and encourage intake. -CHELSEY CARCAMO Feb 06, 2018 15:39
[2018-02-07] MEDS: IMIPENEM/CILASTA(*) 500MG VIAL 300 MG in NS(*) 0.9% 100 ML BAG 100 ML IVPB SCH ×4 (02:42→20:01)
[2018-02-07 02:44] VITALS: BP 136/84
[2018-02-07 05:33] LABS: PLATELET COUNT, AUTOMATED 190 K/uL (150-450)
[2018-02-07 08:16] VITALS: BP 145/81
[2018-02-07] MEDS: TAMSULOSIN HCL 0.4 MG CAP PO SCH (08:23)
[2018-02-07] MEDS: PANTOPRAZOLE SOD 40 MG TABEC PO SCH (08:23)
[2018-02-07] MEDS: MONTELUKAST SODIUM 10 MG TAB PO SCH (08:23)
[2018-02-07] MEDS: INSULIN HUM LISPRO 100 UN/ML 3 ML VIAL SUBQ PRN ×4 (08:24→20:57)
[2018-02-07 11:07] VITALS: BP 154/92
--- NOTE | 2018-02-07 14:15 | Hospitalist Progress Note ---
Subjective Progress Notes Subjective No new complaints. Feeling better overall. Physical Exam Vital Signs Date Time Temp Pulse Resp B/P (MAP) Pulse Ox O2 Delivery O2 Flow Rate FiO2 02/07/18 11:07 98.7 73 20 154/92 (112) 95 Nasal Cannula 2.0 Intake and Output 02/08/18 07:00 Intake Total 580 ml Balance 580 ml Intake Oral 480 ml IV Total 100 ml General Appearance: Alert, Awake, No Acute Distress Neuro: No Gross deficits Cardiovascular: Regular Rate and Rhythm Respiratory: Clear to Auscultation GI: Soft and Non-Tender Extremities: Warm, Perfused, Other (R lower leg with swelling. Redness of proximal lower leg much improved. Still some erythema of lower leg. Slightly warm to the touch. I&D wound open with clear serosanguinous fluid draining.) Integumentary: Other (See above.) Psych: Appropriate Mood & Affect Result Diagram: 02/07/1851402/07/18514 Assessment and Plan Problems: (1) Cellulitis Status: Acute Assessment & Plan: He presented with 2 days of RLE erythema and fall causing a knee abrasion 3 days ago. It is complicated by diabetes. He had an elevated WBC and his there is a fluid collection in the soft tissue of the calf that measures 12x4x1 cm. Dr[address] Thibodeaux drained it on 02/05. He is now on IV Primaxin. The erythema is improving. Culture is growing MSSA. Will continue IV antibiotics for now. Will get wound care recs from PT. (2) Sepsis Status: Resolved Assessment & Plan: He presented with low normal BP, ARF and elevated lactate secondary to RLE cellulitis. He was given IVF per the sepsis protocol and given a dose of hydrocortisone. His lactate has normalized and his BP is stable. (3) ARF (acute renal failure) Status: Acute Assessment & Plan: Secondary to above. He has improved with IVF. Creatinine now normal. BP up. Will restart lisinopril. (4) Type II diabetes mellitus Status: Chronic Assessment & Plan: Metformin and glimepiride restarted. AC and HS glucose monitoring. Will use SSI level 1 as needed also. (5) CKD (chronic kidney disease) stage 3, GFR 30-59 ml/min Status: Chronic Assessment & Plan: Baseline creatinine is about 1.3. He is at 1.2 today. (6) Hypertension, benign Status: Chronic Assessment & Plan: Meds restarted with parameters. (7) Hypothyroidism Status: Chronic Assessment & Plan: Continue chronic levothyroxine. (8) BPH (benign prostatic hyperplasia) Status: Chronic Assessment & Plan: Continue chronic Flomax. (9) COPD (chronic obstructive pulmonary disease) Status: Chronic Assessment & Plan: Lungs are clear. Continue chronic Singulair. Time Spent on Plan of Care: < 30 min Exam Sepsis Risk: No Definite Risk YULIANA SPANGLER MD Feb 07, 2018 14:14
[2018-02-07 15:37] VITALS: BP 153/93
[2018-02-07] MEDS: metFORMIN HCL 500 MG TAB PO SCH (16:27)
[2018-02-07 18:57] VITALS: BP 144/82
[2018-02-07] MEDS: GABAPENTIN 100 MG CAP PO SCH (20:56)
[2018-02-07] MEDS: CARVEDILOL 6.25 MG TAB PO SCH (20:57)
[2018-02-07] MEDS ORDERED: ATORVASTATIN 10 MG TAB PO SCH (21:00)
[2018-02-08] MEDS: IMIPENEM/CILASTA(*) 500MG VIAL 300 MG in NS(*) 0.9% 100 ML BAG 100 ML IVPB SCH ×2 (02:17→08:09)
[2018-02-08 02:20] VITALS: BP 154/92
[2018-02-08 06:21] LABS: PLATELET COUNT, AUTOMATED 213 K/uL (150-450)
[2018-02-08] MEDS: LEVOTHYROXINE SOD 0.05 MG TAB PO SCH (06:28)
[2018-02-08 08:01] VITALS: BP 154/92
[2018-02-08] MEDS: metFORMIN HCL 500 MG TAB PO SCH (08:09)
[2018-02-08] MEDS: INSULIN HUM LISPRO 100 UN/ML 3 ML VIAL SUBQ PRN (08:13)
[2018-02-08] MEDS: PANTOPRAZOLE SOD 40 MG TABEC PO SCH (08:32)
[2018-02-08] MEDS: MONTELUKAST SODIUM 10 MG TAB PO SCH (08:32)
[2018-02-08] MEDS: GABAPENTIN 100 MG CAP PO SCH (08:32)
[2018-02-08] MEDS: TAMSULOSIN HCL 0.4 MG CAP PO SCH (08:32)
[2018-02-08] MEDS: CARVEDILOL 6.25 MG TAB PO SCH (08:33)
[2018-02-08] MEDS ORDERED: LISINOPRIL 20 MG TAB PO SCH ×2 (09:00)
[2018-02-08] MEDS ORDERED: GLIMEPIRIDE 2 MG TAB PO SCH (09:00)
[2018-02-08] MEDS ORDERED: AMOX-559 PO (09:40)
--- NOTE | 2018-02-08 09:47 | Hospitalist Progress Note ---
Subjective Progress Notes Subjective This patient was admitted for cellulitis of the leg. He had no acute events overnight. Patient Complains of: Cardiovascular: No: Chest Pain Respiratory: No: Shortness of Breath Physical Exam Vital Signs Date Time Temp Pulse Resp B/P (MAP) Pulse Ox O2 Delivery O2 Flow Rate FiO2 02/08/18 08:01 98.3 74 16 154/92 (112) 92 Nasal Cannula 2.0 Intake and Output 02/09/18 07:00 Intake Total 360 ml Balance 360 ml Intake Oral 360 ml Cardiovascular: Regular Rate and Rhythm Respiratory: Clear to Auscultation Integumentary: Other (Minimal erythema to right leg. Draining wound on lateral surface.) Result Diagram: 02/08/18 0510 02/08/18 0510 Item Value Date Time Body Fluid Culture - Final Complete 02/05/18 1830 Fine Needle Aspirate Staphylococcus Aureus Assessment and Plan Problems: (1) Cellulitis Status: Acute Assessment & Plan: He presented with 2 days of the right leg. There was also an abscess on the right leg, which was drained by Dr. Thibodeaux. He was placed on empiric treatment with Primaxin. A blood culture was positive for methicillin sensitive Staphylococcus. He will discharge on oral Augmentin and home health wound care. (2) Sepsis Status: Resolved Assessment & Plan: He did have an elevated WBC and lactate. Both have improved with treatment of his infection. (3) ARF (acute renal failure) Status: Acute Assessment & Plan: Resolved with Iv fluids. (4) Type II diabetes mellitus Status: Chronic Assessment & Plan: He is on chronic treatment with metformin, and glimepiride. (5) CKD (chronic kidney disease) stage 3, GFR 30-59 ml/min Status: Chronic (6) Hypertension, benign Status: Chronic Assessment & Plan: He is on chronic treatment with lisinopril and carvedilol. (7) Hypothyroidism Status: Chronic Assessment & Plan: He is on chronic treatment with levothyroxine. (8) BPH (benign prostatic hyperplasia) Status: Chronic Assessment & Plan: Continue chronic Flomax. (9) COPD (chronic obstructive pulmonary disease) Status: Chronic Assessment & Plan: He is on chronic treatment with Singulair. Exam Sepsis Risk: No Definite Risk CAROLYN KAY DO Feb 08, 2018 09:47
--- NOTE | 2018-02-08 10:01 | Hospitalist Depart ---
Discharge Summary Reason for Hosp/Final Diag: (1) Cellulitis Status: Acute Hospital Course & Plan: He presented with 2 days of the right leg. There was also an abscess on the right leg, which was drained by Dr. Thibodeaux. He was placed on empiric treatment with Primaxin. A blood culture was positive for methicillin sensitive Staphylococcus. He will discharge on oral Augmentin and home health wound care. (2) Sepsis Status: Resolved Hospital Course & Plan: He did have an elevated WBC and lactate. Both have improved with treatment of his infection. (3) ARF (acute renal failure) Status: Acute Hospital Course & Plan: Resolved with Iv fluids. (4) Type II diabetes mellitus Status: Chronic Hospital Course & Plan: He is on chronic treatment with metformin, and glimepiride. (5) CKD (chronic kidney disease) stage 3, GFR 30-59 ml/min Status: Chronic (6) Hypertension, benign Status: Chronic Hospital Course & Plan: He is on chronic treatment with lisinopril and carvedilol. (7) Hypothyroidism Status: Chronic Hospital Course & Plan: He is on chronic treatment with levothyroxine. (8) BPH (benign prostatic hyperplasia) Status: Chronic Hospital Course & Plan: Continue chronic Flomax. (9) COPD (chronic obstructive pulmonary disease) Status: Chronic Hospital Course & Plan: He is on chronic treatment with Singulair. Departure Latest Vital Signs Vital Signs 02/08/18 08:01 Temp 98.3 Pulse 74 Resp 16 B/P (MAP) 154/92 (112) Pulse Ox 92 O2 Delivery Nasal Cannula O2 Flow Rate 2.0 Weight (Pounds): 240 Result Diagram: 02/08/18 0510 02/08/18 0510 Condition: Improved Discharge: Home Health Home Health RN Follow Up For: Wound Care Discharge Instructions Home Meds Active Scripts Amoxicillin/Pot Clav 875-125 Mg Tab (AUGMENTIN 875-125 TABLET) 1 Each Tablet, 1 TAB PO Q12H, #10 TAB Prov:CAROLYN KAY DO 02/08/18 Gabapentin (GABAPENTIN) 100 Mg Capsule, 1-2 TAB PO BID Y for pain, #360 CAPSULE 3 Refills Prov:AVE DYER MD 12/10/17 Lisinopril (LISINOPRIL) 20 Mg Tablet, 1 TAB PO QDAY, #90 TAB 3 Refills Prov:AVE DYER MD 10/23/17 Omeprazole (OMEPRAZOLE) 20 Mg Capsule.dr, 1 CAP PO QDAY, #90 TAB 3 Refills TAKE ONE CAPSULE BY MOUTH ONCE A DAY Prov:AVE DYER MD 09/21/17 Atorvastatin Calcium (ATORVASTATIN CALCIUM) 20 Mg Tablet, 1 TAB PO QDAY, #90 TAB 4 Refills Prov:AVE DYER MD 03/01/17 Tamsulosin Hcl (TAMSULOSIN HCL) 0.4 Mg Cap.er.24h, 1 CAP PO QHS, #90 CAP 4 Refills Prov:AVE DYER MD 03/01/17 Montelukast Sodium (MONTELUKAST SODIUM) 10 Mg Tablet, 1 TAB PO QDAY, #90 TAB 4 Refills TAKE ONE TABLET BY MOUTH AT LEAST TWO HOURS PIOR TO EXERCISE Prov:AVE DYER MD 03/01/17 Levothyroxine Sodium (LEVOTHYROXINE SODIUM) 50 Mcg Tablet, 1 TAB PO QDAY, #90 TAB 4 Refills Prov:AVE DYER MD 03/01/17 Glimepiride (GLIMEPIRIDE) 1 Mg Tablet, 1 TAB PO QDAY, #90 TAB 4 Refills Prov:AVE DYER MD 03/01/17 Carvedilol (CARVEDILOL) 12.5 Mg Tablet, 1 TAB PO BID, #180 TAB 4 Refills TAKE ONE TABLET BY MOUTH TWICE A DAY Prov:VAE DYER MD 03/01/17 Metformin Hcl (METFORMIN HCL) 500 Mg Tablet, 2 TAB PO BID, #360 TAB 4 Refills TAKE TWO TABLETS BY MOUTH TWO TIMES A DAY WITH FOOD Prov:AVE DYER MD 03/01/17 Fluticasone Prop 50 Mcg Ns (FLONASE 50 MCG NS) 16 Gm [place].susp, 2 SPRAYS NS QDAY, #3 CON 4 Refills Prov:AVE DYER MD 03/01/17 Cyanocobalamin (Vitamin B-12) (B-12) 1,000 Mcg Tablet.er, 1000 MCG PO QDAY, #30 TAB 5 Refills Prov:AVE DYER MD 06/20/16 Reported Medications Aspirin (Children's Aspirin) 81 Mg Tab.chew, 1 TAB 3XW, #100 TAB 4 Refills 11/19/14 Discontinued Reported Medications Tamsulosin Hcl (FLOMAX) 0.4 Mg Cap.er.24h, MG PO, CAP 02/04/18 Cholecalciferol (Vitamin D3) (VITAMIN D3) 1,000 Unit Tablet, 1000 TAB PO DAILY, #100 TAB 4 Refills 11/19/14 Discontinued Scripts Cetirizine Hcl (CETIRIZINE HCL) 10 Mg Tablet, 1 TAB PO QDAY, #90 TAB 3 Refills TAKE 1 TABLET DAILY. Prov:AVE DYER MD 05/10/16 Budesonide (BUDESONIDE) 0.25 Mg/2 Ml Ampul.neb, 0.25 MG IH BID, #60 ML 6 Refills Prov:AVE DYER MD 09/21/17 Arformoterol Tartrate (BROVANA) 15 Mcg/2 Ml Vial.neb, 15 MCG IH BID, #60 VIAL 6 Refills Prov:AVE DYER MD 09/21/17 Diet: Diabetic Activity: As Tolerated Copies to: AVE DYER MD Venous Thromboembolism Antithrombotics Is Pt On Any Antithrombotics?: No [id number] Certification Face to Face Home Health Certification Institutional Provider conducted the [id number] encounter. Electronic Undersigning Physician Certifies Home Health. I certify that the patient has been under my care and that I had a [id number] encounter that meets the physician [id number] encounter requirements with this patient. This patient is home-bound due to safety issues and continues to require assistance with ADL's. I certify that based on my findings, that Nursing, Aides and the following Home Health services are medically necessary: Medical Necessity: Nursing Date Face to Face Conducted: Feb 08, 2018 CAROLYN KAY DO Feb 08, 2018 10:01
--- NOTE | 2018-02-08 12:43 | Medical Nutrition Therapy ---
Nutrition Anthropometrics Height (Inches): 76.00 Height (Calculated Centimeters: [phone] Weight (Pounds): 240 Weight (Calculated Kilograms): 108.862 Omari Nutrition Score: Adequate Omari Nutrition Risk Score: 20 Dietary Referral Nutrition Risk Factors: Nutrition Risk Comment: Physical Findings Physical Appearance: Overweight BMI 25-29 Skin Appearance Skin Appearance: Edema Edema Location Modifier: Right Edema Location: Foot Type of Edema: Degree of Edema: 2+ Gastrointestinal Symptoms GI Symtoms: Bloating Tube Present: Bowel Sounds: Recent Bowel Pattern: Stool Characteristics: Nutritional Diagnosis Nutritional Risk Acuity 2: Chronic Renal Failure, Abcess/Non-Healing Wound, Sepsis Nutritional Risk Acuity 3: COPD Unstable Past Medical History: Hypoxia, T2DM, CKD stage 3, obesity, BPH, HTN, hyperthyroid, ARF, COPD, Nutritional Acuity: 2-Moderate Nutrition Diagnosis: Increased Nutrient Needs Nutrition Etiology: Physiological Causes Nutrition Problem/Etiology/Sym: Increase nutrient needs related physiological causes as evidence by sepsis in RLE. Energy Requirement: 2309 (Ledbetter Luck Adj BMI >27.5 X1.3 AF) Protein Requirement: 86 (.8kg/kg ) Fluid Requirement: 2309 (1ml/kcal) Diet Type: Diabetic Nutrition Intervention: Cont diet as ordered, Encourage intake Diet Comment To RSA: 75g of carbs and unlimited protein and fat. Nutritional Education Nutrition Education Topic: Diabetic Nutrition Learning Readiness: Little Interest Teaching Methods: Discussion, Handout Response to Teaching: Reinforcement needed Teaching Recipient: Patient Nutrition Counseling: Provided nutrition education on diabetes. Pt showed little interest. Spoke about the importance of managing carb intake and diabetes, related to pt elevated blood sugars while he was here at [facility]. Discussed possible risk related to diet and carb intake, and how it could possibly lead to other health complications. Discussed and gave pt handout on carb counting, carb quality and quantity. Pt accepted all the handouts given to him. Pt had no questions or concerns. -MT Nutrition Monitoring & Eval RD Patient Assessment Time: [address] Assessment Type: RD Assessment Patient Nutrition Acuity: 2-Moderate Follow Up Date: Feb 12, 2018 Nutritional Comment: 02/05 Pt admitted for cellulitis in RLE. Pt has had 2 days of RLE erythema and fall causing a knee abrasion 3 days ago. It is complicated by diabetes. RLE has been drained. Pt is on ADA diet with 100% oral intake. Pt has elevated c- reactive protein (20.1), creatinine (1.20), BUN (37) and low alb (2.5). Moderate protein to help wound heal. Will continue to monitor pt progress, labs, etc. and encourage intake. -MT 02/08 No compliant at this time. Continue on ADA diet with 100% oral intake. Pt continues to have elevated whole blood glucose (151). Pt sepsis has been resolved and will be going home today. Spoke with pt about nutrition education regarding to diabetes. Provided pt with handouts to take home regarding carb intake and blood sugar. Pt accepted the handouts. Nurse stated the TCN will be monitoring pt progress. Will continue to monitor pt progress and encourage intake. -CHELSEY CARCAMO Feb 08, 2018 10:01
== END 2018-02-08 12:30 | disposition home health service (06) | DRG 872 ==
LOC: ER 15:28 → MED 17:15
PROVIDERS: ADMIT Internal Medicine; ATTEND Internal Medicine
PROC: 5A09357 Assistance with Respiratory Ventilation, Less than 24 Consecutive Hours, Continuous Positive Airway Pressure (ICD-10-PCS; 2018-02-04)
PROC: 0Y9H3ZX Drainage of Right Lower Leg, Percutaneous Approach, Diagnostic (ICD-10-PCS; principal; 2018-02-05)
DX: A41.01 Sepsis due to Methicillin susceptible Staphylococcus aureus (principal); L03.115 Cellulitis of right lower limb; N17.9 Acute kidney failure, unspecified; E11.628 Type 2 diabetes mellitus with other skin complications; E11.22 Type 2 diabetes mellitus with diabetic chronic kidney disease; I12.9 Hypertensive chronic kidney disease with stage 1 through stage 4 chronic kidney disease, or unspecified chronic kidney disease; N18.3 Chronic kidney disease, stage 3 (moderate); E03.9 Hypothyroidism, unspecified; N40.0 Benign prostatic hyperplasia without lower urinary tract symptoms; B95.61 Methicillin susceptible Staphylococcus aureus infection as the cause of diseases classified elsewhere; J44.9 Chronic obstructive pulmonary disease, unspecified; K21.9 Gastro-esophageal reflux disease without esophagitis; E78.00 Pure hypercholesterolemia, unspecified; G47.30 Sleep apnea, unspecified; Z79.84 Long term (current) use of oral hypoglycemic drugs; Z99.81 Dependence on supplemental oxygen; Z96.651 Presence of right artificial knee joint
CPT/HCPCS: 10160; 36415; 36416; 71046; 76999; 82040; 82247; 82310; 82374; 82435; 82565; 82947; 82948; 83605; 84075; 84132; 84155; 84295; 84450; 84460; 84520; 85025; 85610; 85730; 86140; 87040; 87071; 87073; 87077; 87186; 96361; 96374; 96375; 97161; 99285; J0692; J0743; J1720; J2001; J7030; J7050

== ENCOUNTER 2018-02-08 06:33 | Outpatient (RCR) | payer MEDICARE ==
[2014-11-24 16:30] VITALS: BMI 30.4
[~2018-02-08 06:33] MED LIST changes: +TAMS0.4C25 PO
[2018-02-08] MEDS ORDERED: AMOX-559 PO (09:40)
--- NOTE | 2018-02-09 10:51 | Transitional Care Management ---
Assessment Visit Type: Telephone Visit (02/09 Flavio) Cardiac: WNL Respiratory: WNL Except Respiratory Comment: 02/09 Using O2 12/03 need hasn't changed--always gets a little SOB w activity. GI: Nutrition: WNL GI Comment: 02/09 Continues with diabetic diet and use of oral diabetic meds. Wt Gain/Loss: WNL Except Weight Comment: 02/09 Unchanged except over weight and "I realize I need to work on getting some wt off" Constipation?: No Musculoskeletal, Exercise: WNL Mobility/Falls: WNL Mobility Comment: 02/09 denies any recent falls. walks with a cane Integumentary: WNL Except Integumentary Comment: 02/09 "Cellulittis on R leg looks improved. HH will be here at noon to change the dressing" "Redness above and below the dressing is decreasing" Feeling of Well Being: WNL Socialization: WNL Scheduled Follow-Up with Provi: No (02/09 Has not made an appt w yet) Following Discharge Instructio: Yes TCM Discharge Criteria Medication Knowledge: 02/09 went over mes-got anbiotic and taking as directed. Disease Management/Concern/Wha: went over the red and yellow flags of diabetes, cellulittis and COPD Transitional Care Comment: 02/07 went over red/yellow flags of diabetes, cellulitis and COPD. His hobbies include fixing up old tractors and cars, Enc saftey with oxygen, also ask him to ask Saad for a green tubing when they visit again. 02/09He states that he is doing "Ok"eating good and waiting for HH to come at noon to change dressing. He refused a home visit on Sunday but did agree to another phone call in a week. "Feel like I'm doing good and HH will be covering everything" Copies to: AVE DYER MD, JOAN Feb 09, 2018 10:51
--- NOTE | 2018-02-18 12:05 | Transitional Care Management ---
Assessment Visit Type: Telephone Visit (02/18 Flavio) Cardiac: WNL Respiratory: WNL Except Respiratory Comment: 02/09 Using O2 12/03 need hasn't changed--always gets a little SOB w activity. GI: Nutrition: WNL GI Comment: 02/09 Continues with diabetic diet and use of oral diabetic meds 02/18 cont diabetic diet "as close as I can" Wt Gain/Loss: WNL Except Weight Comment: 02/09 Unchanged except over weight and "I realize I need to work on getting some wt off" 02/18 unchanged Constipation?: No Musculoskeletal, Exercise: WNL Mobility/Falls: WNL Mobility Comment: 02/09 denies any recent falls. walks with a cane Integumentary: WNL Except Integumentary Comment: 02/09 "Cellulittis on R leg looks improved. HH will be here at noon to change the dressing" "Redness above and below the dressing is decreasing" 02/18 "getting better, redness wy down" HH still doing dressing changes Feeling of Well Being: WNL Socialization: WNL Scheduled Follow-Up with Provi: No (02/09 Has not made an appt w yet) Following Discharge Instructio: Yes TCM Discharge Criteria Medication Knowledge: 02/09 went over mes-got anbiotic and taking as directed. Disease Management/Concern/Wha: went over the red and yellow flags of diabetes, cellulittis and COPD Transitional Care Comment: 02/07 went over red/yellow flags of diabetes, cellulitis and COPD. His hobbies include fixing up old tractors and cars, Enc saftey with oxygen, also ask him to ask Saad for a green tubing when they visit again. 02/09He states that he is doing "Ok"eating good and waiting for HH to come at noon to change dressing. He refused a home visit on Sunday but did agree to another phone call in a week. "Feel like I'm doing good and HH will be covering everything" 02/18 Pt states s"I'm doing good. Everything improving. Have HH changing dressings." DC'd from program per pt request. Copies to: AVE DYER MD, JOAN Feb 18, 2018 12:05
== END 2018-02-18 15:44 | disposition home or self-care (01) ==
LOC: TCM 06:33
PROVIDERS: ATTEND Nurse Practitioner
DX: Z02.9 Encounter for administrative examinations, unspecified (principal)

== ENCOUNTER → 2018-02-21 | Outpatient (CLI) | payer MEDICARE ==
[2014-11-24 16:30] VITALS: BMI 30.4
[~2018-02-21] MED LIST changes: +AMOX-559 PO
[2018-02-21 13:23] LABS: PLATELET COUNT, AUTOMATED 176 K/uL (150-450)
== END ==
LOC: LAB 13:00
PROVIDERS: ATTEND Internal Medicine
DX: L03.90 Cellulitis, unspecified (principal); J44.9 Chronic obstructive pulmonary disease, unspecified; N18.3 Chronic kidney disease, stage 3 (moderate); E03.9 Hypothyroidism, unspecified; E11.9 Type 2 diabetes mellitus without complications
CPT/HCPCS: 36415; 82040; 82247; 82310; 82374; 82435; 82565; 82607; 82947; 83036; 84075; 84132; 84155; 84295; 84443; 84450; 84460; 84520; 85025

== ENCOUNTER → 2018-07-02 | Outpatient (CLI) | payer MEDICARE ==
[2014-11-24 16:30] VITALS: BMI 30.4
[~2018-07-02] MED LIST changes: +CETI10CA8 PO; +FLU180SY11 IM; -METF-411 PO; +METF-450 PO; +OLOOD OU
[2018-07-02 16:47] LABS: PLATELET COUNT, AUTOMATED 145 K/uL (150-450)
[2018-07-02 17:06] LABS: LDL CHOLESTEROL 75 mg/dl
== END ==
LOC: LAB 16:17
PROVIDERS: ATTEND Internal Medicine
DX: E78.00 Pure hypercholesterolemia, unspecified (principal); I10 Essential (primary) hypertension; E11.9 Type 2 diabetes mellitus without complications
CPT/HCPCS: 36415; 81001; 82040; 82247; 82310; 82374; 82435; 82465; 82565; 82607; 82947; 83036; 83718; 84075; 84132; 84155; 84295; 84443; 84450; 84460; 84478; 84520; 85025